=== PATIENT | female | born 1965 | race Caucasian/White ===

== ENCOUNTER 2018-07-25 12:35 | Observation (INO) ==
[2018-07-25] MEDS ORDERED: SOLU-MEDROL IV ONE (12:48)
[2018-07-25] MEDS ORDERED: SODIUM CHLORIDE 0.9% INJ PRN (12:48)
[2018-07-25] MEDS ORDERED: PHENERGAN IV PRN (12:48)
[2018-07-25] MEDS ORDERED: BOOSTRIX VACCINE IM ONE (13:18)
[2018-07-25] MEDS ORDERED: PREVNAR 13 IM ONE (13:18)
[2018-07-25 13:38] LABS: BASO# 0.06 X1000 (0.0-0.2); BASO% 0.9 % (0.0-0.8); EOS# 0.26 X1000 (0.0-0.7); EOS% 3.7 % (0.0-10.0); HEMATOCRIT 41.3 % (37.0-47.0); HEMOGLOBIN 13.4 g/dL (12.0-16.0); IMM GRAN# 0.02 X1000 (0.0-0.04); IMM GRAN% 0.3 % (0.0-0.5); LYMPH# 2.24 X1000 (1.2-3.4); LYMPH% 32.1 % (20.5-51.1); MCH 29.7 PG (27-31); MCHC 32.4 g/dL (33-37); MCV 91.6 FL (81-99); MONO# 0.57 X1000 (0.11-0.59); MONO% 8.2 % (1.7-9.3); MPV 9.9 FL (7.4-10.4); NEUT# 3.83 X1000 (1.4-6.5); NEUT% 54.8 % (42.2-75.2); PLT 377 X1000 (130-400); RBC 4.51 XMIL (4.2-5.4); WBC 6.98 X1000 (4.8-10.8)
--- NOTE | 2018-07-25 13:56 | Diag Imaging Result Doc PS360 ---
EXAM: CHEST-2 VIEWS 07/25/2018 HISTORY: acute asthma exacerbation TECHNIQUE: PA and lateral chest COMMENT: There is no evidence of acute cardiac or pulmonary disease. Compared to 08/12/2017 there has been no significant change in the appearance of the chest. IMPRESSION: No evidence of acute disease. Electronically signed by Robert Aguilar 07/25/2018 1:54 PM
[2018-07-25] MEDS: TYLENOL PO PRN (14:05)
[2018-07-25 14:21] LABS: AGAP 9; BUN 9 mg/dL (8-22); CALCIUM 8.2 mg/dL (8.8-10.2); CHLORIDE 103 mmol/L (98-107); COSMO 277; CREATININE 0.6 mg/dL (0.5-0.9); ESTIMATED GFR > 60; GLUCOSE 105 mg/dL (70-104); POTASSIUM 4.1 mmol/L (3.5-5.1); SODIUM 139 mmol/L (136-145); TCO2 27 mmol/L (25-35)
[2018-07-25] MEDS: ROCEPHIN 1 GM in NS 50 ML IV SCH (14:21)
[2018-07-25] MEDS: ZITHROMAX 500 MG/NS 500 MG/250 ML IVPB IV SCH (15:07)
[2018-07-25] MEDS: DUONEB (A & A) INH SCH ×3 (15:36→23:20)
[2018-07-25] MEDS: ULTRAM PO PRN (16:29)
[2018-07-25] MEDS: ASPIRIN PO SCH (20:35)
[2018-07-25] MEDS: NIACIN PO SCH (20:35)
[2018-07-25] MEDS ORDERED: DULERA 100 MCG/5 MCG INHALER INH SCH (21:00)
[2018-07-25] MEDS: SOLU-MEDROL IV SCH (23:29)
[2018-07-26] MEDS: DUONEB (A & A) INH SCH ×6 (03:15→23:05)
[2018-07-26] MEDS: SOLU-MEDROL IV SCH ×3 (06:20→21:10)
[2018-07-26] MEDS: PRILOSEC PO SCH (06:21)
[2018-07-26] MEDS: SYNTHROID PO SCH (06:21)
[2018-07-26] MEDS: SINGULAIR PO SCH (09:12)
[2018-07-26] MEDS: PAXIL PO SCH (09:12)
[2018-07-26] MEDS: ULTRAM PO PRN (09:15)
--- NOTE | 2018-07-26 09:39 | PROGRESS NOTE ---
DATE: 07/26/2018 SUBJECTIVE: Ms. Hylton was admitted to [facility] with an acute asthma exacerbation complicated by tracheobronchitis. She had a low-grade fever of 100.2 early this morning. She reports that she is breathing more comfortably. Her cough is less prominent. She is still wheezing. Her chest x-ray was clear. OBJECTIVE: Temperature 100.2 degrees, pulse 101, respiratory rate 16, BP 118/66. CV: Tachycardic, regular. S1, S2. Lungs: Improved air movement but she still has wheezing in the lower lung [place] with forced expiration. Abdomen: Soft, nontender, with active bowel sounds. Extremities: Without edema. ASSESSMENT AND PLAN: Acute asthma exacerbation with tracheobronchitis. Clinically, she is better. We will continue Solu-Medrol 80 mg intravenous every 8 hours, broad-spectrum antibiotics including Zithromax and Rocephin, as well as DuoNeb nebulizer treatments. We will continue her on her baseline medications including Dulera and Singulair. cc: Agustin Salas MD
[2018-07-26] MEDS: ROCEPHIN 1 GM in NS 50 ML IV SCH (12:50)
[2018-07-26] MEDS: ZITHROMAX 500 MG/NS 500 MG/250 ML IVPB IV SCH (14:05)
[2018-07-26] MEDS: TYLENOL PO PRN (15:33)
[2018-07-26] MEDS: NIACIN PO SCH (21:09)
[2018-07-26] MEDS: ASPIRIN PO SCH (21:10)
[2018-07-27] MEDS: TYLENOL PO PRN (01:11)
[2018-07-27] MEDS: DUONEB (A & A) INH SCH ×2 (03:05→07:40)
[2018-07-27] MEDS: SOLU-MEDROL IV SCH (05:46)
[2018-07-27] MEDS: PRILOSEC PO SCH (06:01)
[2018-07-27] MEDS: SYNTHROID PO SCH (06:01)
[2018-07-27 07:18] VITALS: BP 122/79
[2018-07-27] MEDS ORDERED: DULERA 100 MCG/5 MCG INHALER INH SCH (07:30)
[2018-07-27] MEDS ORDERED: ROBITUSSIN-AC PO PRN (08:44)
[2018-07-27] MEDS ORDERED: LEVAQUIN PO SCH (09:00)
[2018-07-27] MEDS: PAXIL PO SCH (09:23)
[2018-07-27] MEDS: SINGULAIR PO SCH (09:23)
== END 2018-07-27 10:22 | disposition home or self-care (01) ==
LOC: DIRADM → 3N 12:35
PROVIDERS: ADMIT Internal Medicine; ATTEND Internal Medicine
CPT/HCPCS: 71020; 71046; 80048; 85025; 90670; 90715; 94640; 94760; 94761; A9270; J0456; J0696; J2930

== ENCOUNTER 2019-01-15 09:55 | Inpatient (IN) ==
[2019-01-15] MEDS ORDERED: PHENERGAN IV PRN (10:23)
[2019-01-15] MEDS ORDERED: SODIUM CHLORIDE 0.9% INJ PRN (10:23)
[2019-01-15 10:58] LABS: BASO# 0.05 X1000 (0.0-0.2); BASO% 0.3 % (0.0-0.8); EOS# 0.21 X1000 (0.0-0.7); EOS% 1.3 % (0.0-10.0); HEMATOCRIT 43.6 % (37.0-47.0); HEMOGLOBIN 13.7 g/dL (12.0-16.0); IMM GRAN# 0.11 X1000 (0.0-0.04); IMM GRAN% 0.7 % (0.0-0.5); LYMPH# 4.21 X1000 (1.2-3.4); LYMPH% 25.2 % (20.5-51.1); MCH 28.7 PG (27-31); MCHC 31.4 g/dL (33-37); MCV 91.2 FL (81-99); MONO# 1.27 X1000 (0.11-0.59); MONO% 7.6 % (1.7-9.3); MPV 9.8 FL (7.4-10.4); NEUT# 10.88 X1000 (1.4-6.5); NEUT% 64.9 % (42.2-75.2); PLT 510 X1000 (130-400); RBC 4.78 XMIL (4.2-5.4); RDW 13.7 % (11.5-14.5); WBC 16.73 X1000 (4.8-10.8)
[2019-01-15 11:11] LABS: AGAP 10; BUN 13 mg/dL (8-22); CHLORIDE 102 mmol/L (98-107); COSMO 283; CREATININE 0.9 mg/dL (0.5-0.9); ESTIMATED GFR > 60; GLUCOSE 89 mg/dL (70-104); POTASSIUM 3.7 mmol/L (3.5-5.1); SODIUM 142 mmol/L (136-145); TCO2 30 mmol/L (25-35)
[2019-01-15] MEDS: SOLU-MEDROL IV SCH ×2 (11:12→21:03)
[2019-01-15] MEDS: DUONEB (A & A) INH SCH ×4 (12:24→23:30)
[2019-01-15] MEDS: LOVENOX SUBQ SCH (14:51)
[2019-01-15] MEDS: TYLENOL PO PRN (16:08)
[2019-01-15] MEDS: DULERA 100 MCG/5 MCG INHALER INH SCH (20:03)
[2019-01-15] MEDS: ASPIRIN PO SCH (21:04)
[2019-01-15] MEDS: PEPCID PO SCH (21:04)
[2019-01-15] MEDS: WELLBUTRIN PO SCH (21:04)
[2019-01-16] MEDS: DUONEB (A & A) INH SCH ×6 (03:36→23:12)
[2019-01-16] MEDS: TYLENOL PO PRN (03:47)
[2019-01-16] MEDS: SOLU-MEDROL IV SCH ×3 (06:20→21:23)
[2019-01-16] MEDS: SYNTHROID PO SCH (06:20)
[2019-01-16] MEDS: PRILOSEC PO SCH (06:20)
[2019-01-16] MEDS: DULERA 100 MCG/5 MCG INHALER INH SCH ×2 (08:10→19:33)
--- NOTE | 2019-01-16 08:18 | PROGRESS NOTE ---
DATE: 01/16/2019 SUBJECTIVE: Mrs. Hylton was admitted to [facility] with an acute asthma exacerbation. Clinically, she is somewhat better this morning. She continues with a persistent nonproductive cough, and is wheezing less. She has improved air movement. O2 saturations are ranging from 93% to 97% on room air. OBJECTIVE: Vital Signs: Temperature 98.7 degrees, pulse 94, respirations 17, BP 105/56. CV: Regular rate and rhythm. Lungs: Improved air movement, but still has diffuse end expiratory wheezing with forced expiration. Abdomen: Soft, nontender, with active bowel sounds. Extremities: Without edema. ASSESSMENT AND PLAN: Acute intermittent asthma with acute exacerbation. I will continue nebulizer treatments every 4 hours, intravenous methylprednisolone, as well as her regular medications, including Dulera and Singulair. I suspect that her underlying reflux is contributing to the recurrent asthma exacerbation. We will continue omeprazole 40 mg daily, and I added Pepcid 40 mg twice daily. cc: Agustin Salas MD
[2019-01-16] MEDS: WELLBUTRIN PO SCH ×2 (08:48→21:23)
[2019-01-16] MEDS: PEPCID PO SCH ×2 (08:48→21:23)
[2019-01-16] MEDS: SINGULAIR PO SCH (08:48)
[2019-01-16] MEDS: NIACIN PO SCH (08:48)
[2019-01-16] MEDS: PAXIL PO SCH (08:49)
[2019-01-16] MEDS: XANAX PO SCH (08:49)
[2019-01-16] MEDS: ROBITUSSIN-AC PO PRN ×2 (11:20→15:51)
[2019-01-16] MEDS: LOVENOX SUBQ SCH (13:05)
[2019-01-16] MEDS: ASPIRIN PO SCH (21:23)
[2019-01-17] MEDS: ROBITUSSIN-AC PO PRN ×2 (00:33→14:46)
[2019-01-17] MEDS: DUONEB (A & A) INH SCH ×6 (03:14→23:22)
[2019-01-17] MEDS: PRILOSEC PO SCH (06:05)
[2019-01-17] MEDS: SYNTHROID PO SCH (06:05)
[2019-01-17] MEDS: SOLU-MEDROL IV SCH ×3 (06:06→21:40)
[2019-01-17] MEDS: DULERA 100 MCG/5 MCG INHALER INH SCH ×2 (08:08→19:37)
[2019-01-17 09:29] LABS: BASO# 0.01 X1000 (0.0-0.2); BASO% 0.1 % (0.0-0.8); HEMATOCRIT 42.6 % (37.0-47.0); HEMOGLOBIN 13.3 g/dL (12.0-16.0); IMM GRAN# 0.13 X1000 (0.0-0.04); IMM GRAN% 0.8 % (0.0-0.5); LYMPH# 2.13 X1000 (1.2-3.4); LYMPH% 13.2 % (20.5-51.1); MCHC 31.2 g/dL (33-37); MCV 92.8 FL (81-99); MONO# 0.82 X1000 (0.11-0.59); MONO% 5.1 % (1.7-9.3); MPV 9.8 FL (7.4-10.4); NEUT# 13.02 X1000 (1.4-6.5); NEUT% 80.8 % (42.2-75.2); PLT 483 X1000 (130-400); RBC 4.59 XMIL (4.2-5.4); RDW 13.8 % (11.5-14.5); WBC 16.11 X1000 (4.8-10.8)
[2019-01-17] MEDS: WELLBUTRIN PO SCH ×2 (09:49→21:40)
[2019-01-17] MEDS: NIACIN PO SCH (09:49)
[2019-01-17] MEDS: SINGULAIR PO SCH (09:50)
[2019-01-17] MEDS: PAXIL PO SCH (09:50)
[2019-01-17] MEDS: XANAX PO SCH (09:50)
[2019-01-17] MEDS: PEPCID PO SCH ×2 (09:50→21:40)
--- NOTE | 2019-01-17 09:55 | Diag Imaging Result Doc PS360 ---
EXAM: CHEST-2 VIEWS 01/17/2019 HISTORY: asthma attack TECHNIQUE: PA and lateral chest COMMENT: The heart size and primary vascularity are within normal limits. The lungs are clear. There is no evidence of hyperinflation of the lungs. Compared to 01/15/2019 there has been no significant change. IMPRESSION: Stable chest. Electronically signed by Robert Aguilar 01/17/2019 9:53 AM
[2019-01-17 10:46] LABS: AGAP 15; BUN 12 mg/dL (8-22); CALCIUM 8.6 mg/dL (8.8-10.2); CHLORIDE 101 mmol/L (98-107); COSMO 282; CREATININE 0.8 mg/dL (0.5-0.9); ESTIMATED GFR > 60; GLUCOSE 146 mg/dL (70-104); POTASSIUM 3.7 mmol/L (3.5-5.1); SODIUM 140 mmol/L (136-145); TCO2 24 mmol/L (25-35)
[2019-01-17] MEDS ORDERED: LEVAQUIN 500 MG/D5W 500 MG/100 ML IVPB IV SCH (13:00)
[2019-01-17] MEDS: LOVENOX SUBQ SCH (14:35)
--- NOTE | 2019-01-17 19:07 | PROGRESS NOTE ---
DATE: 01/17/2019 SUBJECTIVE: Mrs. Hylton was admitted to [facility] with an acute asthma exacerbation. Her initial chest x-ray demonstrated no pneumonia. A follow-up chest x-ray demonstrated no pneumonia. She continues with a persistent nonproductive cough, but the cough is less intense. She still has wheezing with forced expiration. She is breathing more comfortably. She denies any fever or chills. LABORATORY DATA: Her white count is still elevated at 16,000 with a left shift. OBJECTIVE: Vital Signs: O2 saturations are ranging from 96% to 97% on room air. Temperature 99.6 degrees, pulse 95, respirations 14, BP 115/61. Cardiovascular: Regular rate and rhythm. Lungs: End expiratory wheezing with forced expiration. Abdomen: Soft, nontender, with active bowel sounds. No hepatosplenomegaly. No abdominal bruits. ASSESSMENT AND PLAN: Acute asthma exacerbation with tracheobronchitis. Repeat chest x-ray did not demonstrate any pneumonia. Because of the persistent cough, wheezing, and mild dyspnea, I do not feel that she is stable for discharge. We will continue DuoNeb nebulizer treatments, IV methylprednisolone. Increase the Dulera to 200 mg/5, 1 puff b.i.d., and I will add Levaquin 500 mg IV daily. I will repeat a CBC in the morning. cc: Agustin Salas MD
[2019-01-17] MEDS: ASPIRIN PO SCH (21:40)
[2019-01-18] MEDS: ROBITUSSIN-AC PO PRN ×2 (00:36→11:55)
[2019-01-18] MEDS: DUONEB (A & A) INH SCH ×3 (03:29→10:58)
[2019-01-18] MEDS: TYLENOL PO PRN (04:24)
[2019-01-18] MEDS: SOLU-MEDROL IV SCH (06:14)
[2019-01-18] MEDS: PRILOSEC PO SCH (06:15)
[2019-01-18] MEDS: SYNTHROID PO SCH (06:15)
[2019-01-18 07:12] LABS: BASO# 0.01 X1000 (0.0-0.2); BASO% 0.1 % (0.0-0.8); HEMATOCRIT 42.4 % (37.0-47.0); HEMOGLOBIN 13.1 g/dL (12.0-16.0); IMM GRAN# 0.16 X1000 (0.0-0.04); IMM GRAN% 1.1 % (0.0-0.5); LYMPH# 1.67 X1000 (1.2-3.4); LYMPH% 11.5 % (20.5-51.1); MCH 28.8 PG (27-31); MCHC 30.9 g/dL (33-37); MCV 93.2 FL (81-99); MONO# 0.71 X1000 (0.11-0.59); MONO% 4.9 % (1.7-9.3); MPV 9.7 FL (7.4-10.4); NEUT# 11.99 X1000 (1.4-6.5); NEUT% 82.4 % (42.2-75.2); PLT 462 X1000 (130-400); RBC 4.55 XMIL (4.2-5.4); RDW 13.9 % (11.5-14.5); WBC 14.54 X1000 (4.8-10.8)
[2019-01-18] MEDS: DULERA 100 MCG/5 MCG INHALER INH SCH (07:38)
[2019-01-18 07:48] VITALS: BP 138/82
[2019-01-18] MEDS: PEPCID PO SCH (08:50)
[2019-01-18] MEDS: XANAX PO SCH (08:52)
[2019-01-18] MEDS: WELLBUTRIN PO SCH (08:53)
[2019-01-18] MEDS: SINGULAIR PO SCH (08:54)
[2019-01-18] MEDS: NIACIN PO SCH (08:54)
[2019-01-18] MEDS: PAXIL PO SCH (08:54)
[2019-01-18] MEDS: LOVENOX SUBQ SCH (10:49)
[2019-01-19] MEDS ORDERED: LEVAQUIN PO SCH (09:00)
== END 2019-01-18 13:47 | disposition home or self-care (01) | DRG 203 ==
LOC: DIRADM → OBSVTOIN 09:55 → EDIPHOLD 10:20 → 3N 12:45
PROVIDERS: ADMIT Internal Medicine; ATTEND Internal Medicine